=== PATIENT | male | born 1940 | race Caucasian/White ===

== ENCOUNTER → 2021-04-03 09:32 | Outpatient (CLI) | payer OTHER, SELFPAY ==
--- NOTE | 2021-04-03 | DI.US.S_ITS ---
PROCEDURE: US CAROTID DOPPLER BI INDICATIONS: LEFT CCA STENOSIS TECHNIQUE: Color and pulse Doppler interrogation was performed of both carotid systems, with image documentation and velocity measurements. COMPARISON: None. FINDINGS: Stenosis calculations are based on SRU (Society [employer] in Ultras[employer]) criteria. Right side: Brachial blood pressure: 136/70 mm Hg. Common carotid artery peak systolic velocity: 100 cm/sec. Internal carotid artery peak systolic velocity: 120 cm/sec. Internal carotid artery end diastolic velocity: 24 cm/sec. External carotid artery peak systolic velocity: 206 cm/sec. ICA/CCA peak systolic ratio: 1.21 Leon scale imaging description: Moderate atherosclerotic changes are seen. Percent internal carotid artery stenosis: Less than 50% by velocity criteria. Vertebral artery: Not seen. Left side: Brachial blood pressure: 118/66 mm Hg. Common carotid artery peak systolic velocity: 107 cm/sec. Internal carotid artery peak systolic velocity: 305 cm/sec (at a 90 degree turn in the vessel) Internal carotid artery end diastolic velocity: 67 cm/sec. External carotid artery peak systolic velocity: 144 cm/sec. ICA/CCA peak systolic ratio: 2.86 Leon scale imaging description: Prior left carotid endarterectomy change can be seen. Percent internal carotid artery stenosis: Greater than 70%. Vertebral artery: Flow direction is antegrade. IMPRESSION: By velocity criteria, there is greater than 70% stenosis of the left internal carotid artery. However, this is seen at a 90 degree turn in the vessel and this is potentially artifactual. Please consider a follow-up CT neck angiogram for further evaluation. Prior left carotid endarterectomy. The right vertebral artery is not seen. Dictated by: Rachid Diaz M.D. on 04/03/2021 at 9:28 Approved by: Rachid Diaz M.D. on 04/03/2021 at 9:30
== END ==
PROVIDERS: PCP Physician Assistant; Referring Provider Physician Assistant; Visit Provider Internal Medicine Cardiovascular Disease
DX: I65.22 Occlusion and stenosis of left carotid artery (principal)
CPT/HCPCS: 93880

== ENCOUNTER → 2022-03-31 12:59 | Outpatient (CLI) | payer OTHER, SELFPAY ==
--- NOTE | 2022-03-31 | DI.CT.S_ITS ---
PROCEDURE: CT ANGIO NECK INDICATIONS: Occlusion and stenosis of left carotid artery TECHNIQUE: After the administration of intravenous contrast, 1.5 mm axial sections acquired from the aortic arch to the [place] of [place]. Maximum intensity projection (MIP) reformats were then performed. COMPARISON: [facility], US, US CAROTID BILATERAL, 03/23/2022, 9:38. FINDINGS: Image quality: Excellent. Carotid system: The great vessels demonstrate a conventional anatomy as they arise from the aortic arch. The origins of the common carotid arteries appear patent. The common carotid arteries demonstrate normal calibers and courses. The bifurcation regions appear normal bilaterally. There is approximate 50% narrowing at the origin of the right internal carotid artery. Calcifications are present. The left internal carotid artery demonstrates tortuosity. There is a focus of narrowing measuring approximately 65% approximately 2 cm from the origin. This is felt to be predominantly secondary to tortuosity. There is approximate 50% narrowing at the origin of the right external carotid artery. Posterior circulation: Right vertebral artery dominance. The origins of the vertebral arteries appear patent. The more superior portions of the vertebral arteries demonstrate normal course and caliber. They join to form a normal appearing basilar artery. Soft tissues: Visualized neck soft tissues demonstrate no suspicious abnormalities. Thyroid gland is unremarkable . Bones: No suspicious bony lesions. Visualized cervical spine appears normally aligned. IMPRESSION: Approximate 50% narrowing at the origin the right internal carotid artery. Approximate 65% narrowing secondary to tortuosity of the proximal left internal carotid artery. Any quantitative stenosis measurements were performed using the NASCET criteria. Dictated by: Mariel Giang M.D. on 03/31/2022 at 17:33 Approved by: Mariel Giang M.D. on 03/31/2022 at 17:38
== END ==
PROVIDERS: PCP Physician Assistant; Referring Provider Internal Medicine Cardiovascular Disease; Visit Provider Internal Medicine Cardiovascular Disease
DX: I65.23 Occlusion and stenosis of bilateral carotid arteries (principal)
CPT/HCPCS: 70498; Q9967

== ENCOUNTER → 2022-09-13 09:12 | Outpatient (CLI) | payer OTHER, SELFPAY ==
[2022-09-15 09:27] LABS: Cholesterol, Total 118 mg/dL (100-199); HDL-Cholesterol 46 mg/dL (>39); HDL-Particle (Total) 36.6 umol/L (>=30.5); LDL Particle 706 nmol/L (<1000); LDL Size 19.9 nm (>20.5); LDL-Cholsterol 50 mg/dL (0-99); LP-IR Score 67 (<=45); Small LDL- Particle 535 nmol/L (<=527); Triglycerides 126 mg/dL (0-149)
== END ==
PROVIDERS: PCP Physician Assistant; Referring Provider Nurse Practitioner; Visit Provider Nurse Practitioner
DX: E78.5 Hyperlipidemia, unspecified (principal)
CPT/HCPCS: 36415; 80061; 83704